=== PATIENT | female | born 1950 | race Caucasian/White ===

== ENCOUNTER → 2016-08-12 | Outpatient (CLI) | payer BC ==
[2016-08-12 22:19] LABS: Basophils % (A) 1 %; CH 32.3; CHCM 33.1; Eosinophils # (A) 0.2 k/uL (0-0.7); Eosinophils % (A) 3 %; HCT 42.7 % (34.0-46.0); HDW 2.61; Luc # (Auto) 0.08; Luc % (Auto) 2; Lymphocytes % (A) 44 %; MCH 32.1 pg (25.0-35.0); MCHC 32.8 g/dL (31.0-37.0); MCV 97.9 fL (80.0-100.0); Mean Platelet Volume 9.1; Monocytes # (A) 0.3 k/uL (0-1.0); Monocytes % (A) 7 %; Neutrophils # (A) 1.9 k/uL (1.3-7.7); Neutrophils % (A) 43 %; RBC 4.37 m/uL (3.80-5.40); WBC 4.5 k/uL (3.8-10.6); WBC (Perox) 4.56
[2016-08-12 22:27] LABS: Cholesterol 247 mg/dL (<200); HDL Cholesterol 61 mg/dL (40-60); Triglycerides 97 mg/dL (<150)
== END | disposition home or self-care (01) ==
LOC: MMGSC 15:46
PROVIDERS: ATTEND Family Medicine
DX: E78.5 Hyperlipidemia, unspecified (principal)
CPT/HCPCS: 36415; 80061; 85025

== ENCOUNTER → 2016-12-29 | Outpatient (CLI) | payer BC, MEDICARE ==
[2016-12-29 18:56] LABS: ALT 41 U/L (9-52); AST 32 U/L (14-36); Alkaline Phosphatase 96 U/L (38-126); Anion Gap 11 mmol/L; Blood Urea Nitrogen 15 mg/dL (7-17); Calcium 9.5 mg/dL (8.4-10.2); Carbon Dioxide 27 mmol/L (22-30); Chloride 107 mmol/L (98-107); Cholesterol 182 mg/dL (<200); Glucose 93 mg/dL (74-99); HDL Cholesterol 53 mg/dL (40-60); Non-African American GFR(MDRD) >60 (>60 ml/min/1.73 sqM); Potassium 4.5 mmol/L (3.5-5.1); Sodium 145 mmol/L (137-145); Total Bilirubin 0.2 mg/dL (0.2-1.3); Total Protein 6.4 g/dL (6.3-8.2); Triglycerides 143 mg/dL (<150)
== END | disposition home or self-care (01) ==
LOC: MMGSC 10:05
PROVIDERS: ATTEND Family Medicine
DX: I10 Essential (primary) hypertension (principal)
CPT/HCPCS: 36415; 80053; 80061

== ENCOUNTER → 2017-02-24 | Outpatient (CLI) | payer MEDICARE ==
--- NOTE | 2017-02-26 09:20 | MM ---
Reason for exam: screening (asymptomatic). Last mammogram was performed 1 year ago. History: Patient is postmenopausal. Family history of breast cancer in paternal aunt at age 60. Benign excisional biopsy of the left breast, 2002. Took hormonal contraceptives for 2 years. Physical Findings: A clinical breast exam by your physician is recommended on an annual basis and results should be correlated with mammographic findings. MG 3D Screening Mammo W/Cad Bilateral CC and MLO view(s) were taken. Prior study comparison: February 18, 2016, bilateral MG screening mammo w CAD. January 03, 2015, bilateral MG screening mammo w CAD. Bilateral mammogram negative for malignancy, however recall for pain. ASSESSMENT: Incomplete: need additional imaging evaluation, BI-RAD 0 RECOMMENDATION: Ultrasound of the left breast. [facility] will attempt to contact patient to return for ultrasound.
== END | disposition home or self-care (01) ==
LOC: RADMAMWWP 13:59
PROVIDERS: ATTEND Family Medicine
DX: Z12.31 Encounter for screening mammogram for malignant neoplasm of breast (principal)
CPT/HCPCS: 77063; G0202

== ENCOUNTER → 2017-04-08 | Outpatient (CLI) | payer MEDICARE ==
[2017-04-08 19:10] LABS: Basophils % (A) 1 %; CH 32.1; CHCM 33.6; Eosinophils # (A) 0.2 k/uL (0-0.7); Eosinophils % (A) 5 %; HCT 40.7 % (34.0-46.0); HDW 2.73; HGB 13.9 gm/dL (11.4-16.0); Luc # (Auto) 0.08; Luc % (Auto) 2; Lymphocytes # (A) 1.8 k/uL (1.0-4.8); Lymphocytes % (A) 38 %; MCH 32.7 pg (25.0-35.0); MCHC 34.1 g/dL (31.0-37.0); MCV 95.9 fL (80.0-100.0); Mean Platelet Volume 9.2; Monocytes # (A) 0.4 k/uL (0-1.0); Monocytes % (A) 8 %; Neutrophils # (A) 2.2 k/uL (1.3-7.7); Neutrophils % (A) 47 %; RBC 4.24 m/uL (3.80-5.40); RDW 13.2 % (11.5-15.5); WBC 4.7 k/uL (3.8-10.6); WBC (Perox) 4.76
[2017-04-08 19:12] LABS: ALT 42 U/L (9-52); AST 31 U/L (14-36); Alkaline Phosphatase 103 U/L (38-126); Anion Gap 12 mmol/L; Blood Urea Nitrogen 19 mg/dL (7-17); Calcium 9.9 mg/dL (8.4-10.2); Carbon Dioxide 25 mmol/L (22-30); Chloride 105 mmol/L (98-107); Cholesterol 164 mg/dL (<200); Glucose 98 mg/dL (74-99); HDL Cholesterol 45 mg/dL (40-60); Non-African American GFR(MDRD) >60 (>60 ml/min/1.73 sqM); Potassium 4.9 mmol/L (3.5-5.1); Sodium 142 mmol/L (137-145); Total Bilirubin 0.4 mg/dL (0.2-1.3); Total Protein 6.5 g/dL (6.3-8.2)
[2017-04-08 21:14] LABS: Hemoglobin A1C 5.5 % (4.2-6.1)
== END ==
LOC: MMGSC 10:09
PROVIDERS: ATTEND Family Medicine
DX: I10 Essential (primary) hypertension (principal); E78.00 Pure hypercholesterolemia, unspecified; E11.9 Type 2 diabetes mellitus without complications
CPT/HCPCS: 36415; 80053; 80061; 83036; 84439; 84443; 85025

== ENCOUNTER → 2017-09-15 | Outpatient (CLI) | payer MEDICARE, BC ==
[2017-09-15 18:56] LABS: ALT 22 U/L (9-52); AST 24 U/L (14-36); Albumin 4.3 g/dL (3.5-5.0); Alkaline Phosphatase 108 U/L (38-126); Anion Gap 11 mmol/L; Blood Urea Nitrogen 17 mg/dL (7-17); Calcium 9.7 mg/dL (8.4-10.2); Carbon Dioxide 26 mmol/L (22-30); Chloride 105 mmol/L (98-107); Cholesterol 174 mg/dL (<200); Glucose 87 mg/dL (74-99); HDL Cholesterol 53 mg/dL (40-60); LDL Cholesterol,Calculated 89 mg/dL (0-99); Potassium 4.3 mmol/L (3.5-5.1); Sodium 142 mmol/L (137-145); Total Bilirubin 0.4 mg/dL (0.2-1.3); Total Protein 6.9 g/dL (6.3-8.2); Triglycerides 158 mg/dL (<150)
== END | disposition home or self-care (01) ==
LOC: MMGSC 14:00
PROVIDERS: ATTEND Family Medicine
DX: I10 Essential (primary) hypertension (principal); E78.5 Hyperlipidemia, unspecified
CPT/HCPCS: 36415; 80053; 80061

== ENCOUNTER 2018-03-05 11:35 | Inpatient (IN) | payer MEDICARE ==
[2018-02-23 12:57] VITALS: BMI 30.2
[~2018-03-05 11:35] MED LIST: DEXAMETHASONE SOD PHOSPHATE 10 MG/ML 1 ML VIAL IV ONE; HYDROmorphone 0.5 MG/0.5 ML SYRINGE IVP PRN; LACTATED RINGERS 1,000 ML IV SCH; LIDOCAINE 1% 20 ML VIAL (10MG/ML) FOR IV START INTRADERMA PRN; MIDAZOLAM 2 MG/2 ML VIAL IV PRN; ONDANSETRON 4 MG/2 ML VIAL IVP ONE; ceFAZolin IN SWFI 2 GM/20 ML SYRINGE IVP ONE; fentaNYL (PF) 50 MCG/ML 2 ML AMP IV PRN
[2018-03-05] MEDS ORDERED: LACTATED RINGERS 1,000 ML IV ONE (12:21)
[2018-03-05] MEDS ORDERED: LIDOCAINE 1% 20 ML VIAL (10MG/ML) FOR IV START INTRADERMA ONE (12:21)
[2018-03-05] MEDS ORDERED: ONDANSETRON 4 MG/2 ML VIAL IVP ONE (12:46)
[2018-03-05] MEDS ORDERED: DEXAMETHASONE SOD PHOS (MDV) 100 MG/10 ML VIAL IV ONE (12:47)
[2018-03-05] MEDS ORDERED: SCOPOLAMINE 1.5MG/72HR PATCH TRANSDERM ONE (12:53)
[2018-03-05] MEDS ORDERED: ROPIVACAINE 5 MG/ML 30 ML VIAL MISCELLANE ONE (13:46)
[2018-03-05] MEDS ORDERED: PROPOFOL 10 MG/ML 20 ML VIAL IV ONE (13:47)
[2018-03-05] MEDS ORDERED: MIDAZOLAM 2 MG/2 ML VIAL ONE (13:47)
[2018-03-05] MEDS ORDERED: SUCCINYLCHOLINE CHLORIDE 100 MG/5 ML SYR IV ONE (13:47)
[2018-03-05] MEDS ORDERED: HYDROmorphone (PF) 1 MG/ML ONE (13:47)
[2018-03-05] MEDS ORDERED: ROCURONIUM BROMIDE 10 MG/ML 10 ML VIAL IV ONE (13:47)
[2018-03-05] MEDS ORDERED: LIDOCAINE 1% INJ 10MG/ML (20 ML MDV) ONE (13:47)
[2018-03-05] MEDS ORDERED: ROPIVACAINE 5 MG/ML 30 ML VIAL ONE (13:47)
[2018-03-05] MEDS ORDERED: fentaNYL (PF) 50 MCG/ML 2 ML AMP ONE (13:47)
[2018-03-05] MEDS ORDERED: LIDOCAINE 2%-EPI 1:100,000 20 ML VIAL ONE (13:47)
[2018-03-05] MEDS ORDERED: NEOSTIGMINE 1 MG/ML 10 ML VIAL ONE (13:47)
[2018-03-05] MEDS ORDERED: GLYCOPYRROLATE 0.2 MG/ML 2 ML VIAL ONE (13:47)
--- NOTE | 2018-03-05 16:08 | P.OP ---
Date of Procedure: 03/05/18 Preoperative Diagnosis: 1. Left stage IIB adult acquired flatfoot deformity 2. Left posterior tibial tendinitis 3. Left gastrocnemius equinus contracture 4. Fibromyalgia Postoperative Diagnosis: Same Procedure(s) Performed: 1. Left subtalar fusion 2. Left FDL tendon transfer to navicular 3. Left posterior tibial tendon excision 4. Left spring ligament repair 5. Left gastrocnemius recession Anesthesia: GIA Surgeon: Grayson Reyes Portfolio Accountant #1: Bong Rea Estimated Blood Loss (ml): 50 IV fluids (ml): 1,500 Pathology: none sent Condition: stable Disposition: PACU Indications for Procedure: The patient is a very pleasant 67-year-old female with a long-standing history of problems with her left ankle and foot. She was initially managed by another provider with activity modification, orthotics, bracing, and therapy. She continued to have pain in the ankle and foot. Most of her pain was along the posterior tibial tendon and she had a flexible flat foot and gastroc equinus contracture on exam. X-rays showed collapsed longitudinal arch and uncoverage of the talar head. An MRI showed diffuse os to tibial tendinitis. We discussed continued nonsurgical treatment versus surgery. The patient elected to go forward with surgery. We discussed potential risks and complications of surgery including but not limited to risk of anesthesia, risk of superficial infection, risk of deep infection, risk of delayed wound healing, risk of recurrence of the deformity, risk of under correction of the deformity, risk of overcorrection of deformity, risk of symptomatically hardware, risk of nonunion of the fusion site, risk of malunion of the fusion site, risk of ongoing pain, risk of chronic pain, risk of generalized to satisfaction of surgery, risk of need for further surgery, risk of DVT, risk of PE, risk of other medical complications, and possibly loss of life or limb. The patient voiced her understanding of these complications and also acknowledges that there are other less common complications possible. Description of Procedure: The patient was identified in preoperative holding and the correct left leg was marked with my initials. I reviewed the consent form with the patient and her . All their questions were answered. The patient was then brought back to the operating room. She was positioned on the or table where general anesthetic and preoperative antibiotics were administered. All bony prominences were well-padded. A tourniquet wasn't by the proximal aspect the left leg. A bump was placed under the left buttock. A ramp was placed under the left leg to facilitate imaging. The left leg was then prepped in the standard sterile fashion. Prior to signing surgery timeout was performed identifying the correct patient, operative extremity, and procedure. The patient's leg was then elevated, exsanguinated with an Esmarch bandage, and the tourniquet was inflated to 250 mmHg. I began by performing a gastrocnemius recession. An incision was marked out over the distal medial muscle belly of the gastrocnemius 1 thumb breadth posterior to the tibia. Skin incision was made with a scalpel. Dissection was carried down At the subcu tissue with tenotomy scissors. The superficial fascia was incised under to internally and line with the skin incision. I bluntly developed the interval between the gastrocnemius aponeurosis and superficial fascia. The sural nerve was seen to be adherent to the superficial fascia. I then blade developed interval between the gastrocnemius aponeurosis and soleus fascia. Modified right angle retractors were placed isolating the gastrocnemius aponeurosis. The gastrocnemius aponeurosis was released in its entirety from medial to lateral. The wound was then copiously irrigated and closed in layers. Attention was then turned to the subtalar joint. An oblique incision was marked out over the skin from the tip of the distal fibula distally in line with the fourth metatarsal. Skin incision was made a scalpel. Dissection was carried down carefully to the subcutaneous tissue tenotomy scissors. The peroneal tendon sheath was incised and the peroneal tendons retracted plantarly. The joint capsule of the subtalar joint was opened. K wires were placed in the talar body and calcaneus and a distractor was used to open the subtalar joint. Cartilage from the posterior and middle facets of the calcaneus and talus were sequentially removed with osteotomes and curettes until there was only bleeding subchondral bone. The wound was copiously irrigated. A 2.5 mm drill bit was used to perforate the subchondral bone to help facilitate fusion. A mixture of crushed cancellus allograft bone and augment was packed into the fusion site. The subtalar joint was held in a reduced position bringing the hindfoot out of valgus and K wires were then placed from the posterior tuberosity of the calcaneus in a divergent fashion with the medial pin directed at the neck and the lateral pin directed at the talar body. The position of the K wires were verified with fluoroscopy in the lateral, axial, and AP ankle views. Cannulated partially-threaded screws were then placed across the subtalar joint generating excellent compression. Lateral incision was then closed in layers. Attention was then turned to the medial aspect of the foot. A skin incision was marked out from the tip of the medial malleolus along the course of the posterior tibial tendon distal to the navicular. The posterior tibial tendon sheath was opened. The posterior tibial tendon appeared extremely degenerative with multiple tears, thickening of the tendon, and intratendinous calcifications. The entire distal portion of the tendon was excised. A small portion was left distally to the navicular tuberosity. The talonavicular joint capsule was then opened and a small portion was released. The floor of the posterior tibial tendon sheath was opened and the FDL tendon was identified. It was dissected distally to the master knot and released. A K wire was then placed through the navicular tuberosity up into the body verifying that the K wire was extra-articular and within the talar body using fluoroscopy. A whipstitch was placed in the FDL tendon. The tendon diameter measured 4 mm. An interference screw was then dispensed. A cannulated reamer was placed over the guidewire and a path was drilled navicular. The FDL tendon was then Plast from plantarly to dorsally and held in place with the foot in a corrected position and a Bio-Tenodesis screw was placed holding the FDL tendon transfer. The spring ligament was then repaired in a pants over vest fashion using #2 FiberWire. The wound was copiously irrigated and closed in layers. Final fluoroscopic images were taken including a lateral view of the foot, a mortise view of the ankle, and AP view of the foot, and an axial heel view. Hardware appeared to be in acceptable position in the arch collapse appeared corrected. Clinically there was nice correction of the flat foot deformity. The tourniquet was let down for total tourniquet time of 90 minutes. A sterile dressing with Betadine soaked Adaptic, 4 x 4, and web roll was applied. A bulky Phillips splint was placed within the ankle at neutral. The patient was awoken from her anesthetic, transferred to a gurney, and brought to PACU without procedure well. Bong Rea PA-C was required as a skilled regional administrative assistant for patient positioning, retraction, placement of hardware, closure of wounds, and application of splint. Plan: The patient is going to be admitted overnight for pain control. She is demented strictly nonweightbearing on her operative extremity. She'll be treated with Lovenox for DVT prophylaxis while in-house and will be discharged home on aspirin. She will receive 2 doses of postoperative antibiotics. I anticipate 8 weeks of nonweightbearing.
[2018-03-05] MEDS ORDERED: diphenhydrAMINE 25 MG CAP PO PRN (16:24)
[2018-03-05] MEDS ORDERED: PROCHLORPERAZINE SUPPOSITORY 25 MG SUPP RECTAL PRN (16:24)
[2018-03-05] MEDS ORDERED: HYDROmorphone 1 MG/ML 1 ML SYRINGE IVP PRN ×3 (16:24→22:17)
[2018-03-05] MEDS ORDERED: METOCLOPRAMIDE 5 MG/ML 2 ML VIAL IVP PRN (16:24)
[2018-03-05] MEDS ORDERED: TEMAZEPAM 15 MG CAP PO PRN (16:24)
[2018-03-05] MEDS ORDERED: hydrOXYzine PAMOATE 25 MG CAP PO PRN (16:24)
[2018-03-05] MEDS ORDERED: ONDANSETRON 4 MG/2 ML VIAL IVP PRN (16:24)
--- NOTE | 2018-03-05 16:34 | FL ---
Fluoroscopy HISTORY: Fusion in foot 47 seconds fluoroscopy time supplied to the referring clinician. 5 intraoperative C-arm images docum ent the procedure. See dictated report from orthopedic surgery.
--- NOTE | 2018-03-05 16:35 | XR ---
Limited left foot HISTORY: Pleural effusion 5 intraoperative C-arm images document the procedure.
[2018-03-05] MEDS: fentaNYL (PF) 50 MCG/ML 2 ML AMP IVP ONE ×2 (16:39→16:44)
[2018-03-05] MEDS ORDERED: KETOROLAC 30 MG/ML 1 ML VIAL IVP ONE (17:00)
[2018-03-05 18:03] LABS: Basophils % (A) 0 %; Eosinophils # (A) 0.1 k/uL (0-0.7); Eosinophils % (A) 1 %; HCT 42.6 % (34.0-46.0); HGB 13.8 gm/dL (11.4-16.0); Lymphocytes # (A) 1.1 k/uL (1.0-4.8); Lymphocytes % (A) 11 %; MCHC 32.3 g/dL (31.0-37.0); MCV 99.2 fL (80.0-100.0); Monocytes # (A) 0.1 k/uL (0-1.0); Monocytes % (A) 1 %; Neutrophils # (A) 8.1 k/uL (1.3-7.7); Neutrophils % (A) 86 %; Platelet Count 307 k/uL (150-450); RBC 4.29 m/uL (3.80-5.40); RDW 12.7 % (11.5-15.5); WBC 9.5 k/uL (3.8-10.6)
[2018-03-05] MEDS: HYDROmorphone 1 MG/ML 1 ML SYRINGE IVP PRN ×2 (20:02→23:30)
[2018-03-05] MEDS: METOPROLOL SUCCINATE (ER) 50 MG TAB.ER.24H PO SCH (21:14)
[2018-03-05] MEDS: GABAPENTIN 300 MG CAP PO SCH (21:14)
[2018-03-05] MEDS: ATORVASTATIN 10 MG TAB PO SCH (21:14)
[2018-03-05] MEDS: LACTATED RINGERS 1,000 ML IV SCH (23:20)
[2018-03-05] MEDS: PANTOPRAZOLE 40 MG/10 ML VIAL IVP SCH (23:30)
[2018-03-06] MEDS ORDERED: hydrALAZINE HCL 20 MG/ML 1 ML VIAL IVP PRN (00:23)
[2018-03-06] MEDS: ceFAZolin IN SWFI 2 GM/20 ML SYRINGE IVP SCH ×2 (00:52→08:32)
[2018-03-06] MEDS: ONDANSETRON 4 MG/2 ML VIAL IVP PRN ×3 (00:55→17:35)
[2018-03-06] MEDS: HYDROmorphone 1 MG/ML 1 ML SYRINGE IVP PRN ×5 (03:22→23:13)
[2018-03-06] MEDS: LACTATED RINGERS 1,000 ML IV SCH ×3 (04:27→21:40)
[2018-03-06 07:36] LABS: Basophils % (A) 0 %; Eosinophils # (A) 0.1 k/uL (0-0.7); Eosinophils % (A) 1 %; HCT 37.5 % (34.0-46.0); Lymphocytes # (A) 1.3 k/uL (1.0-4.8); Lymphocytes % (A) 14 %; MCH 31.6 pg (25.0-35.0); MCV 98.6 fL (80.0-100.0); Mean Platelet Volume 7.2; Monocytes # (A) 0.7 k/uL (0-1.0); Monocytes % (A) 7 %; Neutrophils # (A) 6.9 k/uL (1.3-7.7); Neutrophils % (A) 77 %; Platelet Count 321 k/uL (150-450); RDW 13.1 % (11.5-15.5)
[2018-03-06 08:11] LABS: Anion Gap 7 mmol/L; Blood Urea Nitrogen 19 mg/dL (7-17); Calcium 9.2 mg/dL (8.4-10.2); Carbon Dioxide 24 mmol/L (22-30); Chloride 106 mmol/L (98-107); Glucose 115 mg/dL (74-99); Potassium 4.9 mmol/L (3.5-5.1); Sodium 137 mmol/L (137-145)
[2018-03-06] MEDS: POTASSIUM CHLORIDE ER 20 MEQ TAB.ER PO SCH (08:31)
[2018-03-06] MEDS: GABAPENTIN 300 MG CAP PO SCH ×2 (08:31→21:45)
[2018-03-06] MEDS: ENOXAPARIN 40 MG/0.4 ML SYRINGE SQ SCH (08:32)
[2018-03-06] MEDS: FUROSEMIDE 20 MG TAB PO SCH (08:32)
[2018-03-06] MEDS: PANTOPRAZOLE 40 MG/10 ML VIAL IVP SCH ×2 (08:34→21:45)
--- NOTE | 2018-03-06 08:50 | P.PN ---
Subjective Progress Note Date: 03/06/18 Principal diagnosis: Status post left subtalar fusion and tendon transfer left foot This is a 67 year-old female post left subtalar fusion with FDL tendon transfer to navicular, left posterior tibial tendon excision, left spring ligament repair , and left gastroc recession. This is post-op day 1. The patient was evaluated at the bedside today. The patient denies nausea, vomiting, abdominal pain, shortness of breath, and chest pain this morning. She states her pain is not well controlled at this time. The patient has been up with physical therapy. Objective - Vital Signs Vital signs: Vital Signs Temp 97.1 F L 03/06/18 08:22 Pulse 73 03/06/18 00:55 Resp 14 03/06/18 08:22 BP 139/71 03/06/18 08:22 Pulse Ox 97 03/06/18 08:22 Intake & Output 03/05/18 03/06/18 03/06/18 18:59 06:59 18:59 Intake Total 800 1220 Output Total 50 Balance 750 1220 Weight 79.832 kg Intake: IV 800 Intake, IV Titration 1100 Amount Lactated Ringers 1,000 ml 1100 @ 100 mls/hr IV .Q10H SELINA Rx#:[id number] Oral 120 Output: Estimated Blood Loss 50 - Exam The patient does not appear in acute distress. Alert and orientated x3. Dressing and splint are clean dry and intact. Thigh is soft and nontender. Good toe motion without difficulty. Sensation and circulatory status is intact. - Labs CBC & Chem 7: 03/06/18 07:20 03/06/18 07:20 Labs: Abnormal Lab Results - Last 24 Hours (Table) 03/05/18 03/06/18 Range/Units 17:50 07:20 Neutrophils # 8.1 H (1.3-7.7) k/uL BUN 19 H (7-17) mg/dL Glucose 115 H (74-99) mg/dL Assessment and Plan (1) Flatfoot Current Visit: Yes Status: Acute Code(s): M21.40 - FLAT FOOT [PES PLANUS] ( ACQUIRED), UNSPECIFIED FOOT SNOMED Code(s): 51570553 (2) Status post left foot surgery Current Visit: Yes Status: Acute Code(s): Z98.890 - OTHER SPECIFIED POSTPROCEDURAL STATES SNOMED Code(s): 124629829 Plan: 1. Continue pain control 2. Anticoagulation with Lovenox 3. Continue physical therapy and ambulation, non-weightbearing to left leg 4. Anticipate discharge home in the next 1-2 days.
--- NOTE | 2018-03-06 10:22 | CONS ---
CONSULTATION DATE OF SERVICE: 03/06/2018. REASON FOR CONSULTATION: Hypertension and other typical medical issues, requested by Dr. Reyes. HISTORY OF PRESENT ILLNESS: This 67-year-old woman with a past history of hypertension, hyperlipidemia, fibromyalgia, underwent foot surgery on the right side for adult acquired flatfoot, by Dr. Reyes. There was no chest pain. No palpitations. No history of headache , loss of consciousness, seizures. No history of diarrhea, fever, rigors. Patient is complaining of pain. PAST MEDICAL HISTORY: Hypertension, hyperlipidemia, fibromyalgia, adenoidectomy, breast surgery. MEDICATIONS: Prior to admission include home medications: 1. Potassium 20 mg p.o. daily. 2. Multivitamins 1 p.o. daily. 3. Toprol XL 50 mg at bedtime. 4. Mevacor 20 mg at bedtime. 5. Neurontin 300 mg b.i.d. 6. Lasix 20 mg daily. 8. Colace 100 mg b.i.d. 9. Aspirin 320 mg daily. ALLERGIES: TYLENOL, NORCO. FAMILY HISTORY: No history of heart disease or strokes in the family. SOCIAL HISTORY: No history of smoking. Occasional alcohol intake. REVIEW OF SYSTEMS: ENT: No diminished vision. CARDIOVASCULAR: No angina. RESPIRATORY: No cough. GI: No nausea. : No dysuria. NERVOUS SYSTEM: No numbness or weakness. ALLERGY/IMMUNOLOGY: None. MUSCULOSKELETAL: As mentioned earlier. HEMATOLOGY/ONCOLOGY: No history of diabetes. CONSTITUTIONAL: None. DERMATOLOGY: None. PSYCHIATRY: As mentioned earlier. PHYSICAL EXAM: The patient is alert, oriented x3. The pulse is 84, blood pressure 153/60, respirations 16, temperature 97.8, pulse ox % on room air. HEENT: Conjunctivae normal. Oral mucosa moist. NECK: No jugular venous distention. No carotid bruits. No lymph nodes. CARDIOVASCULAR SYSTEM: S1 and S2 muffled. LUNGS: Breath sounds diminished in the bases. No rhonchi. No crackles. ABDOMEN: Soft, nontender. No mass. LEGS: Left leg status post surgery. NERVOUS SYSTEM: Higher functions as mentioned earlier. Moves all four limbs. No focal deficits. SKIN: No ulcer, rash or bleeding. LABS: CBC within normal limits. ASSESSMENT: 1. Status post left foot surgery. 2. Hypertension. 3. Hyperlipidemia. 4. Fibromyalgia. 5. Adenoidectomy. 6. History of breast surgery. 7. Anxiety and depression. RECOMMENDATIONS: In this 67-year-old woman admitted after surgery, I would recommend to continue the current medications, resume home medications, DVT prophylaxis. Otherwise I would also recommend monitor blood pressure closely and continue to monitor. Incentive spirometry. DVT prophylaxis. We will follow the patient closely with you. Thank you, Dr. Reyes, for letting us participate in the care of this patient. Continue with pain management. Use p.r.n. medications for high blood pressure. MMODL / IJN: [id number] / MAURIZIO
[2018-03-06] MEDS: MULTIVITAMINS, THERA 1 EACH TAB PO SCH (13:10)
--- NOTE | 2018-03-06 15:34 | PN ---
PROGRESS NOTE DATE OF SERVICE: 03/06/2018 This 67-year-old woman who was admitted after left foot surgery is complaining of severe pain. No chest pain or palpitations. No fever. PHYSICAL EXAMINATION: On exam, alert and oriented x3. Pulse 73, blood pressure 129/75, respiration 16, temperature 97.8, pulse ox 95% on room air. HEENT: Conjunctivae normal. NECK; No jugular venous distention. CARDIOVASCULAR: S1 and S2 muffled. RESPIRATORY: Breath sounds diminished at the bases. No rhonchi, no crackles. ABDOMEN: Soft. LEGS: Status post surgery. NERVOUS SYSTEM: No focal deficits. LABS: CBC and BMP noted. ASSESSMENT: 1. Status post left foot surgery with pain. 2. Hypertension. 3. Hyperlipidemia. 4. Fibromyalgia. 5. Adenoidectomy. 6. Gait dysfunction. 7. History of breast surgery. 8. Anxiety, depression. RECOMMENDATIONS AND DISCUSSION: Recommend to continue current medications and symptomatic treatment. Otherwise, DVT prophylaxis, incentive spirometry. Pain management per Orthopedic Surgery. Further recommendations to follow. MMODL / IJN: [id number] /
[2018-03-06] MEDS: ATORVASTATIN 10 MG TAB PO SCH ×2 (21:45→21:47)
[2018-03-06] MEDS: METOPROLOL SUCCINATE (ER) 50 MG TAB.ER.24H PO SCH (21:45)
[2018-03-06] MEDS: SENNOSIDES-DOCUSATE SODIUM 1 EACH TAB PO PRN (22:03)
[2018-03-07] MEDS: HYDROmorphone 1 MG/ML 1 ML SYRINGE IVP PRN (03:04)
[2018-03-07] MEDS: ONDANSETRON 4 MG/2 ML VIAL IVP PRN (03:04)
[2018-03-07] MEDS: FUROSEMIDE 20 MG TAB PO SCH (09:27)
[2018-03-07] MEDS: POTASSIUM CHLORIDE ER 20 MEQ TAB.ER PO SCH (09:27)
[2018-03-07] MEDS: GABAPENTIN 300 MG CAP PO SCH ×2 (09:27→21:27)
--- NOTE | 2018-03-07 09:54 | P.PN ---
Subjective Progress Note Date: 03/07/18 The patient is doing relatively well this morning and is complaining of pain in her left foot. She has been unsteady getting up with therapy. She denies chest pain or shortness of breath. Objective - Vital Signs Vital signs: Vital Signs Temp 98.2 F 03/06/18 23:08 Pulse 82 03/06/18 23:08 Resp 18 03/06/18 23:08 BP 117/69 03/06/18 23:08 Pulse Ox 95 03/06/18 23:08 Intake & Output 03/06/18 03/07/18 03/07/18 18:59 06:59 18:59 Intake Total 1000 Balance 1000 Intake: Oral 1000 Other: # Voids 1 2 - Exam On exam the patient is sitting comfortably in her chair. A focused exam of the left leg shows a clean-appearing bulky Phillips splint with no saturated bleeding. The tips the toes are warm and well perfused with brisk capillary refill. There is no pain with passive range motion of the toes. - Labs CBC & Chem 7: 03/06/18 07:20 03/06/18 07:20 Assessment and Plan (1) Flatfoot Current Visit: Yes Status: Acute Code(s): M21.40 - FLAT FOOT [PES PLANUS] ( ACQUIRED), UNSPECIFIED FOOT SNOMED Code(s): 13599151 (2) Status post left foot surgery Current Visit: Yes Status: Acute Code(s): Z98.890 - OTHER SPECIFIED POSTPROCEDURAL STATES SNOMED Code(s): 743960584 Plan: The patient continues to complain of pain and is also been unsteady with attempts to mobilize out of bed with therapy. We'll continue postoperative care outlined in prior notes. The patient may require discharge to a rehab facility.
[2018-03-07] MEDS: ENOXAPARIN 40 MG/0.4 ML SYRINGE SQ SCH (09:56)
--- NOTE | 2018-03-07 13:41 | XR ---
EXAMINATION TYPE: XR chest 1V portable DATE OF EXAM: 03/07/2018 HISTORY: rehab placement. REFERENCE: NONE. FINDINGS: There is apparent elevation of the right hemidiaphragm. There is atelectatic change at the right lung base. The left lung is clear. Heart size is normal. Pleural spaces are clear. IMPRESSION: 1. APPARENT ELEVATION OF THE RIGHT HEMIDIAPHRAGM. 2. RIGHT BASILAR ATELECTASIS.
[2018-03-07] MEDS: LACTATED RINGERS 1,000 ML IV SCH ×3 (13:47→22:23)
[2018-03-07] MEDS: PANTOPRAZOLE 40 MG TABLET PO SCH ×2 (13:47→17:34)
[2018-03-07] MEDS: PANTOPRAZOLE 40 MG/10 ML VIAL IVP SCH (14:07)
[2018-03-07] MEDS ORDERED: ALBUTEROL NEBULIZED 2.5 MG/3 ML INHALATION PRN (14:28)
[2018-03-07] MEDS: MULTIVITAMINS, THERA 1 EACH TAB PO SCH (15:53)
[2018-03-07] MEDS: ALBUTEROL NEBULIZED 2.5 MG/3 ML INHALATION SCH ×2 (15:55→19:51)
--- NOTE | 2018-03-07 16:08 | PN ---
PROGRESS NOTE DATE OF SERVICE: 03/07/2018. This 67-year-old woman, admitted after foot surgery is complaining of severe foot pain. No chest pain. No palpitations. No fever. PT, OT evaluation, possible ECF rehab is also being considered. No chest pain. No palpitations. PHYSICAL EXAM: Alert and oriented x3. Pulse 68, blood pressure 114/70, respiration 16, temperature 98.2, pulse ox 94% on room air. HEENT: Conjunctivae normal. Oral mucosa moist. NECK: No jugular venous distention. No carotid bruit. No lymph node enlarged. CARDIOVASCULAR: S1, S2. RESPIRATORY: Breath sounds diminished in the bases. No rhonchi, no crackles. ABDOMEN: Soft, nontender. LEGS: Status post left foot surgery. NERVOUS SYSTEM: No focal deficits. LABS: Glucose 115. Other labs are noted. ASSESSMENT: 1. Status post left foot surgery with pain. 2. Hypertension. 3. Hyperlipidemia. 4. Increased random blood sugar. 5. Fibromyalgia. 6. Adenoidectomy. 7. Gait dysfunction. 8. History of breast surgery. 9. Anxiety, depression. RECOMMENDATION AND DISCUSSION: I recommend to continue current medications, continue symptomatic treatment. Otherwise at this time I recommend continue the pain medications. DVT prophylaxis. PT, OT evaluation. Possible ECF rehab and closely followed with Orthopedic Surgery. Further recommendations to follow. MMODL / IJN: [id number] /
[2018-03-07] MEDS: ATORVASTATIN 10 MG TAB PO SCH (21:26)
[2018-03-07] MEDS: METOPROLOL SUCCINATE (ER) 50 MG TAB.ER.24H PO SCH (21:28)
[2018-03-07] MEDS: SENNOSIDES-DOCUSATE SODIUM 1 EACH TAB PO PRN (21:30)
[2018-03-08] MEDS: ALBUTEROL NEBULIZED 2.5 MG/3 ML INHALATION SCH ×4 (07:22→20:07)
[2018-03-08] MEDS: MULTIVITAMINS, THERA 1 EACH TAB PO SCH (08:19)
[2018-03-08] MEDS: ENOXAPARIN 40 MG/0.4 ML SYRINGE SQ SCH (08:19)
[2018-03-08] MEDS: POTASSIUM CHLORIDE ER 20 MEQ TAB.ER PO SCH (08:19)
[2018-03-08] MEDS: FUROSEMIDE 20 MG TAB PO SCH (08:19)
[2018-03-08] MEDS: GABAPENTIN 300 MG CAP PO SCH ×2 (08:19→20:01)
[2018-03-08] MEDS: PANTOPRAZOLE 40 MG TABLET PO SCH ×2 (08:19→17:16)
--- NOTE | 2018-03-08 09:21 | P.PN ---
Subjective Progress Note Date: 03/08/18 Principal diagnosis: S/P left subtalar fusion, FDL transfer Patient is seen at bedside this morning. She is postop day #3 from left subtalar fusion, FDL transfer and gastroc recession. She has pain at the surgical site as expected but denies any new complaints. She has had difficulty with mobilizing. She denies numbness, tingling or calf pain. Review of systems is negative for fever, chills, chest pain, shortness of breath or other Objective - Vital Signs Vital signs: Vital Signs Temp 99.0 F 03/08/18 01:25 Pulse 80 03/08/18 07:32 Resp 18 03/07/18 23:54 BP 106/66 03/07/18 23:54 Pulse Ox 94 L 03/07/18 23:54 Intake & Output 03/07/18 03/08/18 03/08/18 18:59 06:59 18:59 Other: # Voids 1 1 - Exam Inspection reveals a benign well padded splint in place. There is no active bleeding or drainage. Neurovascular status is intact throughout the lower extremity with motor and sensation is fully intact in all digits. Less than 2 second cap refill is present - Constitutional General appearance: Present: no acute distress - Psychiatric Psychiatric: Present: A&O x's 3, appropriate affect, intact judgment & insight - Labs CBC & Chem 7: 03/06/18 07:20 03/06/18 07:20 Assessment and Plan (1) Status post left foot surgery Narrative/Plan: She will continue with routine postop orthopedic protocol including pain management, wound care, physical therapy, DVT prophylaxis and medical management. Expect that she will transfer to rehab in next few days. Current Visit: Yes Status: Acute Priority: Medium Code(s): Z98.890 - OTHER SPECIFIED POSTPROCEDURAL STATES SNOMED Code(s): 265997375 Time with Patient: Less than 30
[2018-03-08 13:35] LABS: Basophils % (A) 0 %; Eosinophils # (A) 0.3 k/uL (0-0.7); Eosinophils % (A) 3 %; HCT 35.8 % (34.0-46.0); HGB 11.8 gm/dL (11.4-16.0); Lymphocytes # (A) 2.6 k/uL (1.0-4.8); Lymphocytes % (A) 31 %; MCH 31.9 pg (25.0-35.0); MCHC 32.9 g/dL (31.0-37.0); MCV 97.2 fL (80.0-100.0); Mean Platelet Volume 7.1; Monocytes # (A) 0.5 k/uL (0-1.0); Monocytes % (A) 6 %; Neutrophils % (A) 59 %; Platelet Count 277 k/uL (150-450); RBC 3.68 m/uL (3.80-5.40); RDW 12.8 % (11.5-15.5); WBC 8.6 k/uL (3.8-10.6)
--- NOTE | 2018-03-08 14:06 | PN ---
PROGRESS NOTE DATE OF SERVICE: 03/08/2018. INTERVAL HISTORY: This 67-year-old woman was admitted after left foot surgery with pain, still complaining of severe pain. PT/OT evaluated the patient for possible ECF rehab. No chest pain. No palpitations. No fever. EXAM: GENERAL: Alert and oriented times three. VITAL SIGNS: Pulse 71, blood pressure 111/60. Respirations 18, temperature 99.1, pulse ox 98% on room air. HEENT: Conjunctivae normal. NECK: No jugular venous distention. CARDIOVASCULAR: S1, S2. RESPIRATORY: Breath sounds diminished in the bases. A few rhonchi. No crackles. ABDOMEN: Soft, nontender. No mass palpable. LEGS no edema. No swelling. NERVOUS SYSTEM: No focal deficits. LABS: At this time reviewed. ASSESSMENT: 1. Status post left foot surgery with severe pain. 2. Atelectasis. 3. Hypertension. 4. Hyperlipidemia. 5. Increased random blood sugar. 6. Fibromyalgia. 7. Adenoidectomy. 8. Gait dysfunction. 9. History of breast surgery. 10.Anxiety, depression. RECOMMENDATIONS AND DISCUSSION: Recommend to continue current medications, management symptomatic treatment. Recommend repeat CBC. I would also recommend to continue with bronchodilators and incentive spirometry in the ECF. Further recommendations to follow. MMODL / IJN: [id number] /
[2018-03-08] MEDS: LACTATED RINGERS 1,000 ML IV SCH (14:33)
[2018-03-08] MEDS: METOPROLOL SUCCINATE (ER) 50 MG TAB.ER.24H PO SCH (20:01)
[2018-03-08] MEDS: LOVASTATIN 20 MG PO SCH (21:13)
[2018-03-09] MEDS: LACTATED RINGERS 1,000 ML IV SCH ×3 (03:15→21:45)
[2018-03-09] MEDS: PANTOPRAZOLE 40 MG TABLET PO SCH ×2 (07:31→16:14)
[2018-03-09] MEDS: ALBUTEROL NEBULIZED 2.5 MG/3 ML INHALATION SCH ×4 (08:18→20:22)
[2018-03-09] MEDS: oxyCODONE-APAP 10-325MG 1 EACH TAB PO PRN ×3 (10:03→16:14)
--- NOTE | 2018-03-09 10:26 | XR ---
EXAMINATION TYPE: XR knee complete RT DATE OF EXAM: 03/09/2018 CLINICAL HISTORY: pain TECHNIQUE: Three views of the right knee are obtained. COMPARISON: None. FINDINGS: There is no acute fracture/dislocation. The tri-compartment joint spaces appear within no rmal limits. Moderate suprapatellar joint effusion. IMPRESSION: There is no acute fracture or dislocation.ICD 10 NO FRACTURE, INITIAL EVALUATION
[2018-03-09] MEDS: POTASSIUM CHLORIDE ER 20 MEQ TAB.ER PO SCH (10:51)
[2018-03-09] MEDS: FUROSEMIDE 20 MG TAB PO SCH (10:51)
[2018-03-09] MEDS: MULTIVITAMINS, THERA 1 EACH TAB PO SCH (10:51)
[2018-03-09] MEDS: ENOXAPARIN 40 MG/0.4 ML SYRINGE SQ SCH (10:52)
[2018-03-09] MEDS: GABAPENTIN 300 MG CAP PO SCH ×2 (10:52→19:54)
[2018-03-09] MEDS: LIDOCAINE 5% PATCH TOPICAL SCH (12:15)
[2018-03-09] MEDS ORDERED: ONDANSETRON 4 MG TAB PO PRN (12:55)
--- NOTE | 2018-03-09 13:48 | P.PN ---
Subjective Progress Note Date: 03/09/18 Principal diagnosis: S/P left subtalar fusion, FDL transfer Patient is seen at bedside this morning. She is postop day #4 from left subtalar fusion, FDL transfer and gastroc recession. She has pain at the surgical site as expected. She has developed right knee pain. She has had difficulty with mobilizing. She denies numbness, tingling or calf pain. Review of systems is negative for fever, chills, chest pain, shortness of breath or other Objective - Vital Signs Vital signs: Vital Signs Temp 99.1 F 03/09/18 07:33 Pulse 80 03/09/18 11:52 Resp 16 03/09/18 07:33 BP 120/58 03/09/18 07:33 Pulse Ox 95 03/09/18 07:33 Intake & Output 03/08/18 03/09/18 03/09/18 18:59 06:59 18:59 Intake Total 400 200 Balance 400 200 Intake: Oral 400 200 Other: Voiding Method Bedside Commode # Voids 2 1 - Exam Inspection reveals a benign well padded splint in place. There is no active bleeding or drainage. Neurovascular status is intact throughout the lower extremity with motor and sensation is fully intact in all digits. Less than 2 second cap refill is present. Right knee shows mild effusion. There is no erythema or ecchymosis. Knee is ligamentously stable. Calf is soft and NT. Patellar tracking normal. - Constitutional General appearance: Present: no acute distress - Psychiatric Psychiatric: Present: A&O x's 3, appropriate affect, intact judgment & insight - Labs CBC & Chem 7: 03/08/18 13:17 03/06/18 07:20 Assessment and Plan (1) Status post left foot surgery Narrative/Plan: Xrays of the right knee will be ordered and reviewed. Suspect exacerbation of existing OA. Pain meds increased. She will continue with routine postop orthopedic protocol including pain management, wound care, physical therapy, DVT prophylaxis and medical management. Expect that she will transfer to rehab in next few days. Current Visit: Yes Status: Acute Priority: Medium Code(s): Z98.890 - OTHER SPECIFIED POSTPROCEDURAL STATES SNOMED Code(s): 737138633 Time with Patient: Less than 30
--- NOTE | 2018-03-09 14:55 | PN ---
PROGRESS NOTE DATE OF SERVICE: 03/09/2018 This 67-year-old woman was admitted after left foot surgery and COPD and also complaining of right knee pain at this time. No chest pain. No palpitations. No fever. PHYSICAL EXAM: Alert and oriented x3, Pulse is 72, blood pressure 120/50, respiration 16, temperature 99.1, pulse ox 94% on room air. HEENT: Conjunctivae normal. NECK: No jugular venous distension. CARDIOVASCULAR: S1, S2, muffled. RESPIRATORY: Breath sounds diminished at the bases, no rhonchi, no crackles. ABDOMEN: Soft, nontender. LEGS: Status post left foot surgery. Minimal pain and swelling of the right knee present. NERVOUS SYSTEM: No focal deficits. LABS: Uric acid 5.1, hemoglobin 11.8. ASSESSMENT: 1. Status post left foot surgery with chronic obstructive pulmonary disease. 2. Right knee pain, possible degenerative joint disease. 3. Atelectasis. 4. Hypertension. 5. Hyperlipidemia. 6. Increase random blood sugar. 7. Fibromyalgia. 8. Adenoidectomy. 9. Gait dysfunction. 10.History of breast surgery. 11.Anxiety, depression. RECOMMENDATION: Recommend to continue current management and symptomatic treatment. Follow closely with Orthopedic Surgery. The knee x-ray shows no acute fracture. Further recommendations to follow. Continue with the DVT prophylaxis. MMODL / IJN: [id number] /
[2018-03-09] MEDS: METOPROLOL SUCCINATE (ER) 50 MG TAB.ER.24H PO SCH (19:54)
[2018-03-09] MEDS: LOVASTATIN 20 MG PO SCH (19:54)
[2018-03-10] MEDS: oxyCODONE-APAP 10-325MG 1 EACH TAB PO PRN ×3 (00:30→13:49)
[2018-03-10] MEDS: ALBUTEROL NEBULIZED 2.5 MG/3 ML INHALATION SCH ×2 (08:02→11:29)
[2018-03-10] MEDS: GABAPENTIN 300 MG CAP PO SCH (08:39)
[2018-03-10] MEDS: ENOXAPARIN 40 MG/0.4 ML SYRINGE SQ SCH (08:39)
[2018-03-10] MEDS: POTASSIUM CHLORIDE ER 20 MEQ TAB.ER PO SCH (08:39)
[2018-03-10] MEDS: PANTOPRAZOLE 40 MG TABLET PO SCH (08:39)
[2018-03-10] MEDS: FUROSEMIDE 20 MG TAB PO SCH (08:39)
[2018-03-10] MEDS: MULTIVITAMINS, THERA 1 EACH TAB PO SCH (08:40)
[2018-03-10] MEDS: LACTATED RINGERS 1,000 ML IV SCH (08:48)
[2018-03-10 08:49] VITALS: BP 128/64; RESP 16; TEMP 99.2
--- NOTE | 2018-03-10 09:13 | P.DS ---
Providers Date of admission: 03/08/18 08:38 Expected date of discharge: 03/10/18 Attending physician: Grayson Reyes Consults: 03/05/18 16:24 Consult Physician Routine Consulting Provider: Justine Ellison Consult Reason/Comments: post op medical management Do you want consulting provider notified?: Yes Primary care physician: Stated None - Discharge Diagnosis(es) (1) Status post left foot surgery Patient was admitted to the OR on 03/05/2018 to undergo a left subtalar fusion, FDL transfer and gastroc recession. She had failed conservative measures as an outpatient and desired to proceed with elective surgery after given informed consent. She underwent the above procedure which she tolerated well without complication. Postoperative hospital course has remained without complication. On day of discharge she is afebrile, vital signs stable, labs within acceptable ranges, tolerating by mouth meds and diet, voiding without difficulty , positive flatus, denies abdominal pain or calf pain, pain is controlled on oral pain medication and has no new complaints. Wound is benign, neurovascular status is intact, calf is soft and nontender, abdomen soft and nontender. Review of systems is negative for numbness, tingling, fever, chills, chest pain , shortness breath, nausea, vomiting, dizziness, headaches, slurred speech or other Current Visit: Yes Status: Acute Priority: Medium Procedures: left subtalar fusion, FDL transfer and gastroc recession Patient Condition at Discharge: Good Plan - Discharge Summary Discharge Rx Participant: No New Discharge Prescriptions: New Aspirin 325 mg PO BID #60 tab Docusate [Colace] 100 mg PO BID #60 capsule oxyCODONE-APAP 10-325MG [Percocet 10-325 mg] 1 tab PO Q4HR PRN #42 tab PRN Reason: Pain No Action Furosemide [Lasix] 20 mg PO DAILY Lovastatin [Mevacor] 20 mg PO HS Gabapentin [Neurontin] 300 mg PO BID Multivitamins, Thera [Multivitamin (formulary)] 1 tab PO DAILY Metoprolol Succinate [Toprol XL] 50 mg PO HS Potassium Chloride [Klor-Con 20] 20 meq PO DAILY Discharge Medication List Furosemide [Lasix] 20 mg PO DAILY 02/23/18 [History] Gabapentin [Neurontin] 300 mg PO BID 02/23/18 [History] Lovastatin [Mevacor] 20 mg PO HS 02/23/18 [History] Metoprolol Succinate [Toprol XL] 50 mg PO HS 02/23/18 [History] Multivitamins, Thera [Multivitamin (formulary)] 1 tab PO DAILY 02/23/18 [History ] Potassium Chloride [Klor-Con 20] 20 meq PO DAILY 02/23/18 [History] Aspirin 325 mg PO BID #60 tab 03/05/18 [Rx] Docusate [Colace] 100 mg PO BID #60 capsule 03/05/18 [Rx] oxyCODONE-APAP 10-325MG [Percocet 10-325 mg] 1 tab PO Q4HR PRN #42 tab 03/10/18 [Rx] Follow up Appointment(s)/Referral(s): Grayson Reyes MD [Medical Doctor] - 03/15/18 1:15 pm (With Bong Rea) Activity/Diet/Wound Care/Special Instructions: maintain splint, keep clean and dry take meds as directed F/U with Dr. Reyes in office non weightbearing elevate operative leg
[2018-03-10] MEDS ORDERED: KETOROLAC 30 MG/ML 1 ML VIAL IVP STA (09:14)
[2018-03-10] MEDS ORDERED: KETOROLAC 30 MG/ML 1 ML VIAL IM STA (09:17)
[2018-03-10 11:39] VITALS: PULSE 80
[2018-03-10] MEDS: LIDOCAINE 5% PATCH TOPICAL SCH (13:53)
--- NOTE | 2018-03-10 19:14 | PN ---
PROGRESS NOTE DATE OF SERVICE: 03/10/2018. INTERVAL HISTORY: This 67-year-old woman was admitted after left foot surgery. She is also complaining of right knee pain. PT/OT evaluating the patient for possible ECF rehab in [facility]. No chest pain. No palpitations. No fever. EXAM: Alert and oriented times three. Pulse is 77. Blood pressure 120/64. Respirations 16. Temp normal. Pulse ox 98% on room air. HEENT: Conjunctivae normal. Neck: No jugular venous distention. Cardiovascular system: S1, S2 muffled. Respiratory: Breath sounds diminished in the bases. No rhonchi. No crackles. Abdomen is soft, nontender. Nervous system: No focal deficits. LABS: At this time shows: WBC 8.2, hemoglobin 11.8. ASSESSMENT: 1. Status post left foot surgery with severe pain. 2. Right knee pain possible degenerative joint disease. 3. Atelectasis. 4. Hypertension. 5. Hyperlipidemia. 6. Increased random blood sugar. 7. Fibromyalgia. 9. Gait dysfunction. 10.History of breast surgery. 11.Anxiety/depression. 12. RECOMMENDATION AND DISCUSSION: In this 67-year-old woman who presented after surgery, at this time, I recommend to continue current medications, management and symptomatic treatment. Continue with PT, OT evaluation. DVT prophylaxis. Subcu heparin may be given for the next 2-3 weeks and follow closely with Dr. Damian and Dr. Olivares in ECF. Further recommendations to follow. MMJARRETL / IJN: [id number] / MTDD
== END 2018-03-10 14:05 | DRG 940 ==
LOC: OR 11:35 → 3SUR 16:09 → OR 03-06 11:09 → 3SUR 03-06 11:09 → OBSVTOIN 03-08 08:38
PROVIDERS: ADMIT Hospitalist; ATTEND Orthopaedic Surgery
PROC: 0L8P0ZZ Division of Left Lower Leg Tendon, Open Approach (ICD-10-PCS; 2018-03-05)
PROC: 0LXT0ZZ Transfer Left Ankle Tendon, Open Approach (ICD-10-PCS; 2018-03-05)
PROC: 0LBT0ZZ Excision of Left Ankle Tendon, Open Approach (ICD-10-PCS; 2018-03-05)
PROC: 0MQR0ZZ Repair Left Ankle Bursa and Ligament, Open Approach (ICD-10-PCS; 2018-03-05)
PROC: 0SGG07Z Fusion of Left Ankle Joint with Autologous Tissue Substitute, Open Approach (ICD-10-PCS; principal; 2018-03-05 13:30)
DX: G89.18 Other acute postprocedural pain (principal); M21.42 Flat foot [pes planus] (acquired), left foot; J98.11 Atelectasis; E11.9 Type 2 diabetes mellitus without complications; M76.822 Posterior tibial tendinitis, left leg; M24.572 Contracture, left ankle; M19.072 Primary osteoarthritis, left ankle and foot; M25.872 Other specified joint disorders, left ankle and foot; J44.9 Chronic obstructive pulmonary disease, unspecified; F32.9 Major depressive disorder, single episode, unspecified; F41.9 Anxiety disorder, unspecified; M25.561 Pain in right knee; R26.9 Unspecified abnormalities of gait and mobility; M79.7 Fibromyalgia; E78.5 Hyperlipidemia, unspecified; I10 Essential (primary) hypertension; Z79.899 Other long term (current) drug therapy; Z90.710 Acquired absence of both cervix and uterus; Z83.3 Family history of diabetes mellitus; Z82.49 Family history of ischemic heart disease and other diseases of the circulatory system
CPT/HCPCS: 71045; 80048; 82306; 84550; 85025; 94640; 94760

== ENCOUNTER → 2018-12-30 | Outpatient (CLI) | payer MEDICARE ==
--- NOTE | 2019-01-03 08:31 | MM ---
Reason for exam: screening (asymptomatic). Last mammogram was performed 1 year and 10 months ago. History: Patient is postmenopausal. Family history of breast cancer in paternal aunt at age 60. Benign excisional biopsy of the left breast, 2002. Took hormonal contraceptives for 2 years. Physical Findings: A clinical breast exam by your physician is recommended on an annual basis and results should be correlated with mammographic findings. MG 3D Screening Mammo W/Cad Bilateral CC and MLO view(s) were taken. Prior study comparison: February 24, 2017, bilateral MG 3d screening mammo w/cad. February 18, 2016, bilateral MG screening mammo w CAD. There are scattered fibroglandular densities. No significant changes when compared with prior studies. ASSESSMENT: Benign, BI-RAD 2 RECOMMENDATION: Routine screening mammogram of both breasts in 1 year.
== END | disposition home or self-care (01) ==
LOC: RADMAMWWP 09:13
PROVIDERS: ATTEND Family Medicine
DX: Z12.31 Encounter for screening mammogram for malignant neoplasm of breast (principal)
CPT/HCPCS: 77063; 77067

== ENCOUNTER → 2020-10-25 | Outpatient (CLI) | payer MEDICARE ==
[~2020-10-25] MED LIST changes: -DEXAMETHASONE SOD PHOSPHATE 10 MG/ML 1 ML VIAL IV ONE; -HYDROmorphone 0.5 MG/0.5 ML SYRINGE IVP PRN; -LACTATED RINGERS 1,000 ML IV SCH; -LIDOCAINE 1% 20 ML VIAL (10MG/ML) FOR IV START INTRADERMA PRN; -MIDAZOLAM 2 MG/2 ML VIAL IV PRN; -ONDANSETRON 4 MG/2 ML VIAL IVP ONE; +REGADENOSON 0.4 MG/5 ML SYRINGE IV PRN; -ceFAZolin IN SWFI 2 GM/20 ML SYRINGE IVP ONE; -fentaNYL (PF) 50 MCG/ML 2 ML AMP IV PRN
--- NOTE | 2020-10-25 15:39 | NM ---
EXAMINATION TYPE: NM stress lexiscan cardiolite DATE OF EXAM: 10/25/2020 COMPARISON: NONE HISTORY: Angina difficulty breathing chest pain TECHNIQUE: After the intravenous administration of 10.3 mCi Tc 99m Sestamibi - Cardiolite resting SP ECT images acquired 45 minutes post injection. At peak stress 25.8 mCi Tc 99m Sestamibi - Stress images obtained 45 minutes post injection The patient was stressed with 0.4mg Lexiscan. FINDINGS: No definite fixed or reversible perfusion defects are evident. There is dyskinesia of the distal anterior wall. Ejection fraction is calculated to be 70 %. IMPRESSION: 1. No stress-induced ischemic change. 2. Dyskinesia of the distal anterior wall. 3. Normal preserved ejection fraction of 70%.
--- NOTE | 2020-10-26 08:39 | EST ---
EXERCISE STRESS AGE: 69 SEX: Female HT: 5'4" WT: 180 lbs. PROTOCOL: Lexiscan Cardiolite STAGE: N/A DURATION OF EXERCISE: N/A HEART RATE REST: 77 BLOOD PRESSURE REST: 160/77 MAXIMUM HEART RATE ACHIEVED: 109 MAXIMUM BLOOD PRESSURE: 170/72 85% MPHR: 129 100% MPHR: 152 METS: N/A INDICATIONS: Chest pain CLINICAL INFORMATION: Baseline EKG revealed normal sinus rhythm with inferolateral nonspecific ST and T-wave changes. With Lexiscan administration, heart rate changed from 77-109 beats per minute. Blood pressure changed from 160/77 to 170/72. Patient had nausea and some discomfort in the left shoulder. EKG remained inconclusive. By EKG criteria, this is an inconclusive Lexiscan stress test because of resting EKG changes. The nuclear scan results which are more pertinent will be reported by the radiologist. MMAUGUSTUS / MAYANKN: [id number] /
== END | disposition home or self-care (01) ==
LOC: RADNMMAIN 08:09
PROVIDERS: ATTEND Family Medicine
DX: I51.89 Other ill-defined heart diseases (principal)
CPT/HCPCS: 93017; 78452; A9500; J2785

== ENCOUNTER 2023-06-16 07:07 | Day surgery (SDC) | payer MEDICARE ==
[~2023-06-16 07:07] MED LIST changes: +LACTATED RINGERS 1,000 ML IV SCH; -REGADENOSON 0.4 MG/5 ML SYRINGE IV PRN
[2023-06-16] MEDS ORDERED: ONDANSETRON 4 MG/2 ML VIAL ONE (07:43)
[2023-06-16] MEDS ORDERED: ONDANSETRON 4 MG/2 ML VIAL IVP ONE (07:44)
[2023-06-16 07:56] VITALS: TEMP 97
[2023-06-16] MEDS ORDERED: PROPOFOL 10 MG/ML 20 ML VIAL IV ONE (08:29)
--- NOTE | 2023-06-16 09:04 | P.PCN ---
Date of Procedure: 06/16/23 Procedure(s) Performed: BRIEF HISTORY: Patient is a 72-year-old pleasant white female scheduled for an elective colonoscopy as a part of evaluation of prior history of colon polyps. Last coloscopy was 7 years ago. PROCEDURE PERFORMED: Colonoscopy snare polypectomy and Endo Clip placement. PREOPERATIVE DIAGNOSIS: History of colon polyps. IV sedation per Anesthesia. PROCEDURE: After informed consent was obtained, the patient, was brought into the endoscopy unit. IV sedation was administered by Anesthesia under continuous monitoring. Digital rectal examination was normal. Initially the Olympus CF-160 flexible video colonoscope was then inserted in the rectum, gradually advanced into the sigmoid: Further advancement was not possible as the scope was removed. Pediatric colonoscopy was introduced into the rectum and gradually advanced into the cecum without any difficulty. Careful examination was performed as the scope was gradually being withdrawn. Ileocecal valve and the appendiceal orifice were visualized and appeared normal. Prep was excellent. Mucosa of the cecum, ascending colon, transverse colon, descending colon, appeared normal. There was a 3 mm polyp noted in the proximal; sigmoid that was removed by cold biopsy. There was another 3 cm broad-based; polyp located at 35 cm from the anal was there was removed by piecemeal snare polypectomy followed by Endo Clip placement. Complete polypectomy was accomplished. sigmoid colon, and rectum appeared normal. Retroflexion was performed in the rectum and no lesions were seen. The patient tolerated the procedure well. IMPRESSION: 3 cm broad-based sigmoid: Polyp at 35 cm from the anal verge status post piecemeal snare polypectomy followed by Endo Clip placement 3 mm proximal; sigmoid polyp status post cold biopsy Scattered sigmoid diverticulosis. RECOMMENDATIONS: Findings of this examination were discussed with the patient as well as a family.. He was advised to follow with the biopsy results. If the biopsy adenoma she can have a repeat colonoscopy in one year.
[2023-06-16 09:23] VITALS: BP 119/75; PULSE 65; RESP 14
== END 2023-06-16 09:40 | disposition home or self-care (01) ==
LOC: ORWHC2ENDO 07:07
PROVIDERS: ATTEND Internal Medicine Gastroenterology
DX: Z12.11 Encounter for screening for malignant neoplasm of colon (principal); D12.5 Benign neoplasm of sigmoid colon; I10 Essential (primary) hypertension; E78.5 Hyperlipidemia, unspecified; M79.7 Fibromyalgia; F41.9 Anxiety disorder, unspecified; F32.A Depression, unspecified; Z90.710 Acquired absence of both cervix and uterus; Z90.49 Acquired absence of other specified parts of digestive tract; Z79.899 Other long term (current) drug therapy; Z88.5 Allergy status to narcotic agent; Z86.010 Personal history of colon polyps
CPT/HCPCS: 45382; 45380; 45385; J2405; J2704; 88305

== ENCOUNTER → 2024-03-29 | Outpatient (CLI) | payer MEDICARE ==
--- NOTE | 2024-04-03 11:24 | MM ---
Reason for Exam: Screening (asymptomatic). Last mammogram was performed 1 year(s) and 1 month(s) ago. Patient History: Menarche at age 12. First Full-Term at age 22. Right ovary removed at age 33. Hysterectomy at age 33. Postmenopausal. Patient has history of breast feeding. Patient used Hormonal Contraceptives for 2 years. 2002, Benign Excisional Biopsy on the left side. Paternal aunt had breast cancer, age 60. Risk Values: Isidra 5 year model risk: 2.0%. NCI Lifetime model risk: 5.3%. Prior Study Comparison: 03/21/2021 Bilateral Screening Mammogram, [facility]. 03/24/2022 Bilateral Screening Mammogram, [facility]. 03/25/2023 Bilateral MG 3D screening mammo w/cad, [facility]. Tissue Density: The breasts are almost entirely fatty. Findings: Analyzed By CAD. Left breast surgical clip. Right breast: There is no suspicious group of microcalcifications or new suspicious mass. Left breast: There is no suspicious group of microcalcifications or new suspicious mass. Overall Assessment: Benign, BI-RAD 2 Management: Screening Mammogram of both breasts in [address] [facility] will attempt to contact patient to return for supplemental views and ultrasound if indicated. Patient should continue monthly self-breast exams. A clinical breast exam by your physician is recommended on an annual basis. This exam should not preclude additional follow-up of suspicious palpable abnormalities. Note on Isidra scores and lifetime risk: 1. A Isidra score greater than 3% is considered moderate risk. If this is the case, consider specialist referral to assess eligibility for a risk reducing agent. 2. If overall lifetime risk for the development of breast cancer is 20% or higher, the patient may qualify for future screening with alternating mammogram and breast MRI. Electronically signed and approved by: Nathan Rao DO
== END | disposition home or self-care (01) ==
LOC: RADMAMWWP 09:27
PROVIDERS: ATTEND Family Medicine
DX: Z12.31 Encounter for screening mammogram for malignant neoplasm of breast
CPT/HCPCS: 77063; 77067

== ENCOUNTER 2024-04-05 07:01 | Day surgery (SDC) | payer MEDICARE ==
[2024-03-31 13:57] VITALS: BMI 29.8
[~2024-04-05 07:01] MED LIST changes: -LACTATED RINGERS 1,000 ML IV SCH; +LIDOCAINE 1% (10MG/ML) FOR IV START INTRADERMA PRN
[2024-04-05] MEDS: IV FLUID CONTINUATION 1,000 ML IV ONE (07:35)
[2024-04-05 07:42] VITALS: RESP 16; TEMP 97.4
[2024-04-05 07:42] LABS: Glucose,Whole Blood 92 mg/dL (70-110)
[2024-04-05] MEDS: LACTATED RINGERS 1,000 ML IV SCH (07:44)
[2024-04-05] MEDS: ONDANSETRON 4 MG/2 ML VIAL IVP ONE (07:45)
[2024-04-05] MEDS ORDERED: PROPOFOL 10 MG/ML 20 ML VIAL IV ONE (08:34)
--- NOTE | 2024-04-05 08:53 | P.PCN ---
Date of Procedure: 04/05/24 Procedure(s) Performed: BRIEF HISTORY: Patient is a 73-year-old pleasant white female scheduled for an elective colonoscopy as a part of evaluation of large sigmoid colon polyp that was noted on colonoscopy in May 2023. Polyp was removed piecemeal fashion and biopsies revealed tubular adenoma. She is scheduled for 1 year follow-up colonoscopy to ensure complete polypectomy PROCEDURE PERFORMED: Colonoscopy with biopsy. PREOPERATIVE DIAGNOSIS: Follow-up large sigmoid colon polyp. IV sedation per Anesthesia. PROCEDURE: After informed consent was obtained, the patient, was brought into the endoscopy unit. IV sedation was administered by Anesthesia under continuous monitoring. Digital rectal examination was normal. Initially the Olympus CF-160 flexible video colonoscope was then inserted in the rectum, gradually advanced into the cecum without any difficulty. Careful examination was performed as the scope was gradually being withdrawn. Ileocecal valve and the appendiceal orifice were visualized and appeared normal. Prep was excellent. Mucosa of the cecum, ascending colon, appeared normal. The transverse colon there is a 3 mm sessile polyp removed by cold biopsy. Rest of the appeared normal. In the sigmoid colon at the site of previous polypectomy there was a 3 mm residual polyp identified which was removed by cold biopsy. Scattered left-sided diverticulosis seen. Rest of the transverse colon, descending colon, sigmoid colon, and rectum appeared normal. Retroflexion was performed in the rectum and no lesions were seen. The patient tolerated the procedure well. IMPRESSION: 3 mm sigmoid colon polyp status post cold biopsy 3 mm transverse colon polyp status post cold biopsy Scattered sigmoid diverticulosis RECOMMENDATIONS: Findings of this examination were discussed with the patient and her family. She was advised to follow the biopsy results and have repeat colonoscopy in 3 years.
[2024-04-05 09:15] VITALS: BP 122/64; PULSE 54
== END 2024-04-05 09:37 | disposition home or self-care (01) ==
LOC: ORWHC2ENDO 07:01
PROVIDERS: ATTEND Internal Medicine Gastroenterology
DX: Z12.11 Encounter for screening for malignant neoplasm of colon (principal); K57.30 Diverticulosis of large intestine without perforation or abscess without bleeding; K63.5 Polyp of colon; Z86.010 Personal history of colon polyps
CPT/HCPCS: 45380; 88305

== ENCOUNTER 2024-11-01 17:14 | Emergency (ER) | payer MEDICARE ==
--- NOTE | 2024-11-01 17:52 | ED ---
Headache HPI - General Chief Complaint: Headache Stated Complaint: Headache Time Seen by Provider: 11/01/24 17:28 Source: patient, RN notes reviewed Mode of arrival: ambulatory Limitations: no limitations - History of Present Illness Initial Comments: This is a 73-year-old female with history of DM, fibromyalgia and hypertension presenting with left-sided headache x 3 days. Patient endorses associated photo/phonophobia and nausea. Endorses history of occasional migraine, but never this severe. Endorses going to PCP, receiving rizatriptan and topiramate which did not improve symptoms at all. Patient also endorses tearing and vision change in left eye and left nare epistaxis for the past several days. Mentions some numbness in left face, tenderness to left scalp and weakness/paresthesia in left upper and lower extremity. Denies fever, chills, dizziness, neck stiffness, chest pain, dyspnea, abdominal pain, vomiting/diarrhea. MD Complaint: "migraine" Onset/Timin -: days(s) Location: left Consistency: constant Associated Symptoms: photophobia, sensitivity to sound - Related Data Home Medications Medication Instructions Recorded Confirmed DULoxetine HCL [Cymbalta] 30 mg PO DAILY 06/11/23 11/01/24 Lisinopril-Hctz 20-12.5 mg 1 tab PO DAILY 06/11/23 11/01/24 [Zestoretic 20-12.5] Ergocalciferol (Vitamin D2) 1,250 mcg PO MONTEJO 11/01/24 11/01/24 [Drisdol (50,000 Iu)] Fexofenadine HCl [Dianne Allergy] 180 mg PO DAILY 11/01/24 11/01/24 Rizatriptan Benzoate [Rizatriptan 10 mg PO BID PRN 11/01/24 11/01/24 Benzoate ODT] Topiramate 25 mg PO DIRECTED 11/01/24 11/01/24 Allergies Allergy/AdvReac Type Severity Reaction Status Date / Time hydrocodone [From [place]] AdvReac Itching Verified 11/01/24 20:41 Review of Systems ROS Statement: Those systems with pertinent positive or pertinent negative responses have been documented in the HPI. ROS Other: All systems not noted in ROS Statement are negative. Past Medical History Past Medical History: Diabetes Mellitus, Fibromyalgia, Hyperlipidemia, Hypertension History of Any Multi-Drug Resistant Organisms: None Reported Past Surgical History: Adenoidectomy, Breast Surgery, Cholecystectomy, Hysterectomy, Orthopedic Surgery, Tonsillectomy Additional Past Surgical History / Comment(s): mya CARPAL TUNNEL. R knee arthroscopy, bunionectomy, R Breast biopsy/benign,partial hyst Past Anesthesia/Blood Transfusion Reactions: Motion Sickness, Postoperative Nausea & Vomiting (PONV) Additional Past Anesthesia/Blood Transfusion Reaction / Comment(s): no hx blood transfusion Past Psychological History: Anxiety, Depression Smoking Status: Never smoker Past Alcohol Use History: Occasional Past Drug Use History: None Reported - Past Family History Mother Family Medical History: No Reported History General Exam Limitations: no limitations General appearance: alert, in no apparent distress Head exam: Present: atraumatic, normocephalic, other (Positive left parietal scalp and temporal tenderness.) Eye exam: Present: normal appearance, PERRL, EOMI. Absent: scleral icterus, conjunctival injection, periorbital swelling ENT exam: Present: normal exam, mucous membranes moist Neck exam: Present: normal inspection. Absent: tenderness, meningismus, lymphadenopathy Respiratory exam: Present: normal lung sounds bilaterally. Absent: respiratory distress, wheezes, rales, rhonchi, stridor, accessory muscle use, decreased breath sounds, prolonged expiratory Cardiovascular Exam: Present: regular rate, normal rhythm, normal heart sounds. Absent: systolic murmur, diastolic murmur, rubs, gallop, clicks GI/Abdominal exam: Present: soft, normal bowel sounds. Absent: distended, tenderness, guarding, rebound, rigid Extremities exam: Present: normal inspection, full ROM, normal capillary refill. Absent: tenderness, pedal edema, joint swelling, calf tenderness Back exam: Present: normal inspection, muscle spasm, paraspinal tenderness (Left paraspinal tenderness and muscle spasm), vertebral tenderness Neurological exam: Present: alert, oriented X3, CN II-XII intact (Patient notes left facial in all 3 regions), other ([place] stroke negative. Cerebellar test normal. Patient notes some paresthesia in left upper and lower extremity. Bilateral upper and lower extremity distal pulses +2) Psychiatric exam: Present: normal affect, normal mood Skin exam: Present: warm, dry, intact, normal color. Absent: rash Course Vital Signs 11/01/24 17:15 Temperature 97.8 F Pulse Rate 73 Respiratory 16 Rate Blood Pressure 183/78 O2 Sat by Pulse 99 Oximetry Medical Decision Making - Medical Decision Making Was pt. sent in by a medical professional or institution ([facility], [employer], urgent care, hospital, or fpc...) When possible be specific @ -PCP Did you speak to anyone other than the patient for history (EMS, parent, family, police, friend...)? What history was obtained from this source @ -[No] Did you review nursing and triage notes (agree or disagree)? Why? @ -[I reviewed and agree with nursing and triage notes] Were old charts reviewed (outside hosp., previous admission, EMS record, old EKG, old radiological studies, urgent care reports/EKG's, fpc records)? Report findings @ -[No old charts were reviewed] Differential Diagnosis (chest pain, altered mental status, abdominal pain women, abdominal pain men, vaginal bleeding, weakness, fever, dyspnea, syncope, headache, dizziness, GI bleed, back pain, seizure, CVA, palpatations, mental health, musculoskeletal)? @ -Differential Headache: Migraine, tension, cluster, carbon monoxide, central venous thrombosis, pension karma temporal arteritis, acute closure glaucoma, intercranial hemorrhage, mastoiditis, sinusitis, head injury, this is not meant to be an all-inclusive list. EKG interpreted by me (3pts min.). @ -Not done X-rays interpreted by me (1pt min.). @ -[None done] CT interpreted by me (1pt min.). @ -[None done] U/S interpreted by me (1pt. min.). @ -[None done] What testing was considered but not performed or refused? (CT, X-rays, U/S, labs)? Why? @ -[None] What meds were considered but not given or refused? Why? @ -[None] Did you discuss the management of the patient with other professionals (professionals i.e. [facility] Bowers, [facility] [facility] [employer], lab, RT, psych nurse, social services manager, boring mill operator, teacher, intelligence officer basic, pillowcase turner)? Give summary @ -[No] Was smoking cessation discussed for >3mins.? @ -[No] Was critical care preformed (if so, how long)? @ -[No] Were there social determinants of health that impacted care today? How? (Homelessness, low income, unemployed, alcoholism, drug addiction, transportation, low edu. Level, literacy, decrease access to med. care, retirement, rehab)? @ -[No] Was there de-escalation of care discussed even if they declined (Discuss DNR or withdrawal of care, Hospice)? DNR status @ -[No] What co-morbidities impacted this encounter? (DM, HTN, Smoking, COPD, CAD, Cancer, CVA, ARF, Chemo, Hep., AIDS, mental health diagnosis, sleep apnea, morbid obesity)? @ -[None] Was patient admitted / discharged? Hospital course, mention meds given and route, prescriptions, significant lab abnormalities, going to OR and other pertinent info. @ -[hospital course] Undiagnosed new problem with uncertain prognosis? @ -[No] Drug Therapy requiring intensive monitoring for toxicity (Heparin, Nitro, Insulin, Cardizem)? @ -[No] Were any procedures done? @ -[No] Diagnosis/symptom? @ -[default] Acute, or Chronic, or Acute on Chronic? @ -Acute Uncomplicated (without systemic symptoms) or Complicated (systemic symptoms)? @ -Complicated Side effects of treatment? @ -[No] Exacerbation, Progression, or Severe Exacerbation? @ -[No] Poses a threat to life or bodily function? How? (Chest pain, [place], [place], pneumonia, PE, COPD, DKA, ARF, appy, cholecystitis, CVA, Diverticulitis, Homicidal, Suicidal, threat to staff... and all critical care pts) @ -[No] - Lab Data Result diagrams: 11/01/24 18:21 11/01/24 18:21 Lab Results 11/01/24 11/01/24 11/01/24 Range/Units 18:21 18:21 18:21 WBC 5.97 (4.50-10.00) 10*3/uL RBC 4.31 (4.10-5.20) 10*6/uL Hgb 14.6 (12.0-15.0) g/dL Hct 41.5 (37.2-46.3) % MCV 96.3 (80.0-97.0) fL MCH 33.9 H (27.0-32.0) pg MCHC 35.2 (32.0-37.0) g/dL Plt Count 299 (140-440) 10*3/uL MPV 10.4 (9.5-12.2) fL Immature Gran % (Auto) 0.2 % Neutrophils % 45.7 % Lymphocytes % 42.5 % Monocytes % 7.2 % Eosinophils % 3.9 % Basophils % 0.5 % Immature Gran # 0.01 (0.00-0.04) 10*3/uL Neutrophils # 2.73 (1.80-7.70) 10*3/uL Lymphocytes # 2.54 (0.90-5.00) 10*3/uL Monocytes # 0.43 (0.20-1.00) 10*3/uL Eosinophils # 0.23 (0.04-0.35) 10*3/uL Basophils # 0.03 (0.00-0.10) 10*3/uL PT 10.2 (10.0-12.5) sec INR 0.9 (<1.2) APTT 22.4 (22.0-30.0) sec Sodium 138 (137-145) mmol/L Potassium 4.4 (3.5-5.1) mmol/L Chloride 101 (98-107) mmol/L Carbon Dioxide 28 (22-30) mmol/L Anion Gap 9 mmol/L BUN 29 H (7-17) mg/dL Creatinine 0.73 (0.52-1.04) mg/dL Est GFR (CKD-EPI)AfAm >90 (>60 ml/min/1.73 sqM) Est GFR (CKD-EPI)NonAf 83 (>60 ml/min/1.73 sqM) Glucose 79 (74-99) mg/dL Calcium 10.4 H (8.4-10.2) mg/dL Total Bilirubin 0.4 (0.2-1.3) mg/dL AST 42 H (14-36) U/L ALT 33 (4-34) U/L Alkaline Phosphatase 97 (38-126) U/L C-Reactive Protein <0.5 (<1.0) mg/dL Total Protein 7.2 (6.3-8.2) g/dL Albumin 4.5 (3.5-5.0) g/dL Disposition Clinical Impression: Migraine headache Disposition: HOME SELF-CARE Condition: Good Instructions (If sedation given, give patient instructions): Migraine Headache (ED) Additional Instructions: Follow-up with PCP/neurology regarding any ongoing migraine symptoms. Is patient prescribed a controlled substance at d/c from ED?: No Referrals: Elizabeth Samuel DO [Primary Care Provider] - 1-2 days Sarah Marroquin MD [STAFF PHYSICIAN] - 1-2 days Time of Disposition: 20:59
[2024-11-01] MEDS: diphenhydrAMINE 50 MG/ML 1 ML VIAL IVP STA (18:24)
[2024-11-01] MEDS: METOCLOPRAMIDE 5 MG/ML 2 ML VIAL IVP STA (18:25)
[2024-11-01] MEDS: SODIUM CHLORIDE 0.9% 1,000 ML IV STA (18:26)
[2024-11-01] MEDS: KETOROLAC 15 MG/ML 1 ML VIAL IVP STA (18:27)
[2024-11-01 18:35] LABS: Basophils # (A) 0.03 10*3/uL (0.00-0.10); Basophils % (A) 0.5 %; Eosinophils # (A) 0.23 10*3/uL (0.04-0.35); Eosinophils % (A) 3.9 %; HCT 41.5 % (37.2-46.3); HGB 14.6 g/dL (12.0-15.0); Lymphocytes # (A) 2.54 10*3/uL (0.90-5.00); Lymphocytes % (A) 42.5 %; MCH 33.9 pg (27.0-32.0); MCHC 35.2 g/dL (32.0-37.0); MCV 96.3 fL (80.0-97.0); Mean Platelet Volume 10.4 fL (9.5-12.2); Monocytes # (A) 0.43 10*3/uL (0.20-1.00); Monocytes % (A) 7.2 %; Neutrophils # (A) 2.73 10*3/uL (1.80-7.70); Neutrophils % (A) 45.7 %; Platelet Count 299 10*3/uL (140-440); RBC 4.31 10*6/uL (4.10-5.20); RDW 12.7 % (11.5-14.5); WBC 5.97 10*3/uL (4.50-10.00)
[2024-11-01 18:47] LABS: INR 0.9 (<1.2); Partial Thromboplastin Time 22.4 sec (22.0-30.0); Prothrombin Time 10.2 sec (10.0-12.5)
[2024-11-01 18:58] LABS: ALT 33 U/L (4-34); AST 42 U/L (14-36); African American GFR (CKD) >90 (>60 ml/min/1.73 sqM); Albumin 4.5 g/dL (3.5-5.0); Alkaline Phosphatase 97 U/L (38-126); Anion Gap 9 mmol/L; Blood Urea Nitrogen 29 mg/dL (7-17); C Reactive Protein <0.5 mg/dL (<1.0); Calcium 10.4 mg/dL (8.4-10.2); Carbon Dioxide 28 mmol/L (22-30); Chloride 101 mmol/L (98-107); Glucose 79 mg/dL (74-99); Non-African American GFR(CKD) 83 (>60 ml/min/1.73 sqM); Potassium 4.4 mmol/L (3.5-5.1); Sodium 138 mmol/L (137-145); Total Bilirubin 0.4 mg/dL (0.2-1.3); Total Protein 7.2 g/dL (6.3-8.2)
--- NOTE | 2024-11-01 20:13 | CT ---
EXAMINATION TYPE: CT brain wo con CT DLP: 1100.6 mGycm, Automated exposure control for dose reduction was used. DATE OF EXAM: 11/01/2024 8:03 PM COMPARISON: None. CLINICAL INDICATION:Female, 73 years old with history of L side paresthesia and weakness x 3 days, he adache, no head injury TECHNIQUE: Brain: Multiple axial CT images of the brain were obtained without IV contrast. . Coronal and sagitta l reformats reviewed. FINDINGS: Brain: Extra-axial spaces: No abnormal extra-axial fluid collections. Ventricular system: Within normal limits Cerebral parenchyma: Mild cerebral volume loss. No acute intraparenchymal hemorrhage or mass effect. The estrada-white junction is well differentiated. Scattered hypoattenuating areas are seen within the periventricular and left frontal lobe subcortical white matter. Cerebellum: Unremarkable. Mass effect: No evidence of midline shift. Intracranial vasculature: Atherosclerotic calcifications of the intracranial vessels. Soft tissues: Normal. Calvarium/osseous structures: No depressed skull fracture. Paranasal sinuses and mastoid air cells: Clear Visualized orbits: Bilateral aphakia IMPRESSION: 1. No acute intracranial process. 2. Nonspecific white matter changes, likely secondary to chronic small vessel ischemic disease. [facility], , 11/01/2024 8:11 PM
--- NOTE | 2024-11-01 20:40 | CT ---
EXAMINATION TYPE: CT angio head neck CT DLP: 345.4 mGycm, Automated exposure control for dose reduction was used. DATE OF EXAM: 11/01/2024 8:15 PM COMPARISON: CT brain of the same date. CLINICAL INDICATION:Female, 73 years old with history of L side paresthesia and weakness x 3 days; PH H, headache, no head injury TECHNIQUE: Axially acquired helical CT angiogram of the head and neck was obtained with contrast util izing 75 cc of Isovue-370 administered intravenously. Axial images are supplemented with 3D reconstru ctions which were post-processed at an independent workstation. NASCET criteria used. MIP imaging performed on a separate workstation and submitted for review. FINDINGS: CTA HEAD: No evidence of acute intracranial hemorrhage, mass effect, or midline shift. The ventricles, sulci, a nd cisterns are unremarkable. The visualized portions of the internal carotid arteries, middle cerebral arteries, anterior cerebral arteries, and posterior cerebral arteries are patent. 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 The basilar and vertebral arteries are patent. CTA NECK: Right Carotid System: The common carotid artery and external carotid artery are patent. Mild atherosclerotic plaque at the carotid bifurcation. Approximately 10% stenosis at the origin of the internal carotid artery. Retroph aryngeal course of the right internal carotid artery. The remaining portions of the internal carotid artery demonstrate normal size without significant narrowing. Left Carotid System: The common carotid artery and external carotid artery are patent. Minimal atherosclerotic plaque at t he carotid bifurcation. No significant stenosis. The remaining portions of the internal carotid arter y demonstrate normal size without significant narrowing. Vertebral arteries are patent without evidence hemodynamically significant stenosis. There is a three-vessel aortic arch. The origins of the great vessels are patent. No evidence of hemo dynamically significant stenosis. 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 Grade 1 anterolisthesis of C3 on C4. Bilateral aphakia. IMPRESSION: 1. No evidence of dissection of the cervical internal carotid arteries or vertebral arteries. No sign ificant stenosis of the left carotid bifurcation. Approximately 10% stenosis of the origin of the rig ht internal carotid artery secondary to atherosclerotic plaque. 2. No evidence of high-grade stenosis or intracranial aneurysm. [facility], , 11/01/2024 8:37 PM
[2024-11-01] MEDS: DEXAMETHASONE SOD PHOSPHATE 4 MG/ML 1 ML VIAL IVP STA (21:44)
[2024-11-01 21:51] VITALS: BP 136/82; PULSE 63; RESP 18; TEMP 98
[2024-11-02 03:36] LABS: Erythrocyte Sedimentation Rate 15 mm/Hr (0-30)
== END 2024-11-01 21:55 | disposition home or self-care (01) ==
LOC: EC 17:14
DX: G43.909 Migraine, unspecified, not intractable, without status migrainosus (principal); R20.2 Paresthesia of skin; Z88.5 Allergy status to narcotic agent
CPT/HCPCS: 36415; 80053; 85652; 85025; 85610; 85730; 86140; 70496; 70450; 70498; 99284; 96374; 96375 ×3; 96361; J1200; J1100; J2765; J1885; Q9967